=== PATIENT | female | born 1970 | race Caucasian/White ===

== ENCOUNTER 2020-12-24 18:26 | Emergency (ER) | payer MEDICAID ==
[~2020-12-24] VITALS: Ht 162.6 cm; Wt 132.4 kg
--- NOTE | 2020-12-24 18:35 | NUR ---
TASK RN: ROBINSON DENNISON FROM HOME W CO 8/10 R SIDED AND SUBSTERNAL CP. ONSET WHILE LAYING IN BED. DENIES ASSOCIATED S/S. 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 HX HYPOTHYROID AND HYPERLIPIDEMIA. BP/SPO2/ECG MONITORING IN PLACE. NSR ON MONITOR. VSS. EKG COMPLETED UPON ARRIVAL. REPORT TO PRIMAR BRIANNA SOMMER.
--- NOTE | 2020-12-24 18:50 | NUR ---
REPORT TO BRIANNA FARRIS
--- NOTE | 2020-12-24 18:52 | NUR ---
REPORT RECEIVED FROM KEMAL RN
[2020-12-24 19:07] LABS: BASOPHILS % (AUTO) 1 % (0-1); EOSINOPHILS % (AUTO) 3 % (1-7); LYMPHOCYTES % (AUTO) 33 % (22-44); MEAN CORPUSCULAR HGB CONC 33.7 g/dL (32.4-35.8); MEAN PLATELET VOLUME 9.3 fL (7.4-10.4); MONOCYTES % (AUTO) 8 % (2-9); NEUTROPHILS % (AUTO) 56 % (42-75); PLATELET COUNT 277 x10^3/uL (130-400); RED BLOOD COUNT 4.51 x10^6/uL (3.82-5.3); RED CELL DISTRIBUTION WIDTH 14.1 % (9.6-15.2)
[2020-12-24 19:27] LABS: ALBUMIN 3.6 g/dL (3.4-5.0); ANION GAP 8 mmol/L (5-15); CALCIUM 9.3 mg/dL (8.5-10.1); CHLORIDE 106 mmol/L (98-107); CREATININE 0.94 mg/dL (0.55-1.02)
[2020-12-24 19:30] LABS: TROPONIN I < 0.015 ng/mL (0.000-0.045)
--- NOTE | 2020-12-24 20:20 | NUR ---
PT COMPLAIN OF PRESSURE UNDER LEFT BREAST. PT GIVEN MEDICATION, RESTING ON GURNEY.
[2020-12-24] MEDS ORDERED: MAALOX/HYOSCYAMINE/LIDOCAINE 45 ML BTL ONE (20:24)
[2020-12-24] MEDS ORDERED: MAALOX/HYOSCYAMINE/LIDOCAINE 45 ML BTL PO ONE (20:30)
[2020-12-24 21:02] VITALS: BP 108/63
--- NOTE | 2020-12-24 21:45 | NUR ---
PT STATED THE GI COCKTAIL WORKED A LITTLE TO RESOVLE SOME OF THE PAIN, ERP AT BEDSIDE
--- NOTE | 2020-12-24 22:12 | NUR ---
Patient given discharge instructions and they have confirmed that they understand the instructions. Patient ambulatory with steady gait.
== END 2020-12-24 22:14 | disposition home or self-care (01) ==
LOC: ED 21:45
DX: R07.89 Other chest pain (principal); I10 Essential (primary) hypertension; E78.5 Hyperlipidemia, unspecified; Z87.891 Personal history of nicotine dependence
CPT/HCPCS: 36415; 71045; 80048; 82040; 84484; 85025; 93005; 99285